=== PATIENT | female | born 1995 | race Caucasian/White ===

== ENCOUNTER 2019-07-05 07:31 | Inpatient (IN) ==
[2019-07-05] MEDS ORDERED: OXYTOCIN 30 UNITS/500 ML BAG IV PRN ×3 (07:52→18:39)
[2019-07-05 08:13] LABS: Hemoglobin 11.4 g/dL (12.0-16.0); Mean Corpuscular Hemoglobin 28.3 pg (25-34); Mean Corpuscular Volume 84.4 fL (80-100); Mean Platelet Volume 9.6 fL (7.4-10.4); Platelet Count 162 K/uL (130-400); RDW Coefficient of Variation 13.9 % (11.5-14.5); RDW Standard Deviation 43.1 fL (36.4-46.3); Red Blood Count 4.03 M/uL (4.2-5.4); White Blood Count 7.78 K/uL (4.8-10.8)
[2019-07-05 08:23] LABS: Mean Corpuscular Hgb Conc 33.5 g/dL (32-36)
[2019-07-05] MEDS: LACTATED RINGER'S 1,000 ML IV PRN ×3 (08:23→16:44)
[2019-07-05] MEDS ORDERED: fentaNYL citrate 100 MCG/2 ML VIAL ONE (11:51)
[2019-07-05] MEDS ORDERED: BUPIVACAINE 0.25% 30 ML VIAL ONE (11:51)
[2019-07-05] MEDS ORDERED: ePHEDrine sulfate 50 MG/ML AMP ONE (11:51)
[2019-07-05] MEDS ORDERED: fentaNYL 2MCG/ML ROPIV 1.25MG/ML 100 ML BAG EPI ONE (11:52)
[2019-07-05] MEDS ORDERED: NALOXONE HCL 1 MG in SODIUM CHLORIDE 0.9% 1000ML 1,000 ML IV PRN (12:03)
[2019-07-05] MEDS ORDERED: ePHEDrine sulfate 50 MG/ML AMP IV PRN (12:03)
[2019-07-05] MEDS ORDERED: fentaNYL 2MCG/ML ROPIV 1.25MG/ML 100 ML BAG EPI PRN (12:03)
[2019-07-05] MEDS ORDERED: NALOXONE HCL 0.4 MG/1 ML VIAL/CARP IV PRN (12:03)
[2019-07-05] MEDS ORDERED: DiphenhydrAMINE HCL 50 MG/ML VIAL IV PRN (12:03)
[2019-07-05] MEDS ORDERED: NALBUPHINE HCL INJ 10 MG/ML AMP IV PRN (12:03)
--- NOTE | 2019-07-05 12:03 | Anesthesiology Consultation ---
Date of Service July 05, 2019 Assessment & Plan Chart Review Chart Review: Acceptable Risk for Labor Epidural ASA ASA2 Proposed Anesthesia Anesthesia Type: Labor Epidural Risk / Benefits Reviewed With: PT / POA / Parent / Guardian, Accepts Plan and Informed Consent Obtained History Height/Weight Height: 5 ft 4 in Weight: 96.162 kg Allergies Allergy/AdvReac Type Severity Reaction Status Date / Time latex Allergy Mild Rash Verified 07/05/19 07:56 Medications Home Medications Medication Instructions Recorded Confirmed Last Taken levothyroxine 100 mcg PO DAILY 07/05/19 07/05/19 07/03/19 vit-iron fum-folic ac 1 tab PO DAILY 07/05/19 07/05/19 07/03/19 [ Vitamin] sertraline 100 mg PO DAILY 07/05/19 07/05/19 07/03/19 Active Medications Generic Name Dose Route Start Last Admin Trade Name Freq PRN Reason Stop Dose Admin Lactated Ringer's 1,000 mls @ 125 mls/hr 07/05/19 07:52 07/05/19 12:39 Lr IV 07/07/19 07:51 125 mls/hr .Q8H PRN Titration L&D Protocol Protocol Oxytocin 30 units in 500 mls @ 5 mls/hr 07/05/19 07:54 07/05/19 10:00 Pitocin IV 07/07/19 07:53 0.3 units/hr .Q24H PRN 5 mls/hr Labor Induction/Augmentation Titration Protocol 0.3 UNITS/HR Past Medical History Medical History H/O varicella History of depression Lump of skin of left upper extremity 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4 years old Exercise / Class Metabolic Activity II 4-5 Yardwork/Stairs/Walk up hill Past Family History Family History Mother Hypertension Past Surgical History Surgical History S/P wisdom tooth extraction Past Anesthesia History No Hx of Anesthesia Complications and No Family Hx of Anesthesia Complications History of PONV No Hx of PONV and No Hx of Motion Sickness Social History Smoking Status: Never smoker Hx Alcohol Use: No Hx Substance Use: No Review of Systems denies fever/cough/ colds/ chest pain/ SOB/ RAFAEL Constitutional: no fever and no chills Respiratory: no cough and no dyspnea denies RAFAEL Cardiovascular: no chest pain and no dyspnea on exertion Physical Exam Vital Signs Last Vital Signs Temp 36.3 C L 07/05/19 12:46 Pulse 76 07/05/19 13:08 Resp 18 07/05/19 12:46 BP 108/57 L 07/05/19 13:08 Pulse Ox 100 07/05/19 13:07 Testing Laboratory Results 07/05/19 08:00
[2019-07-05] MEDS ORDERED: ONDANSETRON INJ 2 MG/ML 2 ML VIAL IV PRN (13:11)
--- NOTE | 2019-07-05 18:16 | Delivery Summary ---
Vaginal Delivery Summary Date of Service July 05, 2019 Induction at 40 weeks and 5 days for postdates patient was 3 cm on admission P itocin was started estimated weight 7 to 8 pounds she requested an epidural and soon after that we performed artificial rupture of membranes for clear fluid she then progressed to fully dilated and pushed over several contractions delivering baby in occiput anterior position clear fluid no nuchal cord mouth and nares suctioned with bulb gentle traction no excessive force live vigorous infant cord clamped and cut cord gases obtained cord blood obtained placenta removed with gentle traction small first-degree tear repaired with 1 suture placenta removed with gentle traction Pitocin started estimated blood loss 150 mL sponge and instrument counts correct
--- NOTE | 2019-07-05 18:37 | Anesthesia Procedure Note ---
Date of Service July 05, 2019 Anesthesia Post Epidural Note Vital Signs Vital Signs: Temp Pulse Resp BP Pulse Ox 36.7 C 104 H 18 129/82 87 L 07/05/19 16:50 07/05/19 18:34 07/05/19 18:15 07/05/19 18:34 07/05/19 18:04 Notes Mental Status: alert / awake / arousable and participated in evaluation Patient Amnestic to Procedure: Yes Nausea / Vomiting: adequately controlled Pain: adequately controlled Airway Patency, RR, SpO2: stable & adequate BP & HR: stable & adequate Hydration State: stable & adequate Anesthetic Complications: no major complications apparent and Pt Satisfied with anesthetic care
[2019-07-05] MEDS ORDERED: BISACODYL 10 MG SUPP PR PRN (18:39)
[2019-07-05] MEDS ORDERED: DIPHTHERIA/TETANUS/PERTUSSIS 0.5 ML SYR/VIAL IM ONE (18:39)
[2019-07-05] MEDS ORDERED: OXYCODONE/ACETAMINOPHEN 5mg/325mg TAB PO PRN (18:39)
[2019-07-05] MEDS ORDERED: HYDROCORTISONE ACETATE 25 MG SUPP PR PRN (18:39)
[2019-07-05] MEDS ORDERED: BENZOCAINE 20% AER SPR 82.5 GM CAN EXT PRN (18:39)
[2019-07-05] MEDS ORDERED: SUPERCREAM 0.870% 15 GM JAR EXT PRN (18:39)
[2019-07-05 18:54] LABS: Base Excess Cord Arterial Bld -3.4 mEq/L (-9-1.8); CO2 Cord Arterial Blood 49 mmHg (39.1-73.5); HCO3 Cord Arterial Blood 24 mmol/L (19.7-28.5)
[2019-07-05 19:00] LABS: Base Excess Cord Venous Blood -2.5 mEq/L (-7.7-1.9); Cord Venous Blood HCO3 22 mmol/L (18.4-26.8); Cord Venous Blood PCO2 37 mmHg (30.4-57.2); Cord Venous Blood PO2 31 mmHg (14.1-43.3); Cord Venous Blood pH 7.39 (7.20-7.44); Oxygen Sat Cord Arterial Blood < 60.0 % (<60)
[2019-07-05] MEDS: DOCUSATE SODIUM 100 MG CAP PO SCH (20:48)
[2019-07-05] MEDS: IBUPROFEN 600 MG TAB PO PRN (23:20)
[2019-07-06] MEDS: IBUPROFEN 600 MG TAB PO PRN ×4 (03:20→19:56)
--- NOTE | 2019-07-06 06:02 | Obstetrical Progress Note ---
Date of Service July 06, 2019 Assessment & Plan (1) Status post vaginal delivery: Leopoldo is a 23 yo on PPD 1 after at 40 - GBS -, Blood Type A+, Rubella immune -Vitals reviewed and WNL (Tmax 37.1) -Hemoglobin reviewed: 11.4 down to 10.8 (patient is asymptomatic) -patient is doing clinically well Continue routine post- care. - After discharge will have [address] Taveras. Supervising Physician Co-Signing Physician Notes Resident Physician Supervision Note: I interviewed and examined the patient. Discussed with Dr. Roth and agree with findings and plan as documented in the note. Any exceptions or clarifications are listed here: [None] Documented By: Donavon Taveras MD, FACOG Subjective Pain is at a 4/10 in severity, improves with Motrin. Notes increased cramping with breast feeding Ambulation: ambulating normally Voiding: no voiding problems Passing Gas:: Yes Diet Tolerance:: regular diet Lochia:: moderate Feeding Type:: breast feeding Review of Systems Constitutional: no fever, no chills and no sweats Eyes: no worsening vision Respiratory: no cough and no dyspnea Cardiovascular: no chest pain, no palpitations, no lightheadedness, no edema and no calf pain Gastrointestinal: no nausea and no vomiting Genitourinary: no dysuria and no urinary frequency Neurologic: no headache(s) Physical Exam Constitutional: WD/WN, vitals as above no acute distress Respiratory: normal respiratory effort, lungs clear to auscultation does not use accessory muscles Auscultation: no crackles, no rales, no rhonchi, no wheezes and no pleural rub Cardiovascular: Rate/Rhythm: regular rate and regular rhythm Heart Sounds: normal S1 and normal S2; no gallop, no murmur and no cardiac rub Extremities: no calf tenderness and no pedal edema Gastrointestinal (Abdomen): Inspection/Auscultation: normal bowel sounds; abdomen not distended Percussion/Palpation: abdomen soft Genitourinary: Uterus: fundus firm, palpable 1 cm below the umbilicus Results & Data Vital Signs (Past 12 Hours) Vital Signs Temp Pulse Pulse Resp BP BP Pulse Ox 07/06/19 05:11 36.3 C L 78 18 117/75 99 11/19/19 23:58 36.4 C L 83 18 113/76 98 07/05/19 20:35 36.4 C L 87 18 115/74 98 07/05/19 20:19 104 H 120/68 07/05/19 20:15 18 07/05/19 20:04 78 118/67 07/05/19 19:49 95 H 116/61 07/05/19 19:45 37.1 C 18 07/05/19 19:34 88 109/66 07/05/19 19:20 88 115/59 L 07/05/19 19:15 20 07/05/19 19:04 83 114/68 07/05/19 19:00 37.0 C 18 07/05/19 18:49 91 H 123/74 07/05/19 18:45 18 07/05/19 18:34 104 H 129/82 07/05/19 18:30 36.8 C 104 H 18 129/82 07/05/19 18:19 105 H 18 130/73 07/05/19 18:16 96 H 18 130/65 07/05/19 18:15 18 07/05/19 18:04 97 H 87 L 07/05/19 18:02 94 H 99 Resident Activity Tracking Resident Involvement: Resident Care Provided Care Provided: OB Delivery
[2019-07-06 06:13] LABS: Hematocrit (blood only) 31.2 % (37-47); Hemoglobin 10.8 g/dL (12.0-16.0); Mean Corpuscular Hemoglobin 29.3 pg (25-34); Mean Corpuscular Hgb Conc 34.6 g/dL (32-36); Mean Corpuscular Volume 84.6 fL (80-100); Mean Platelet Volume 9.6 fL (7.4-10.4); Platelet Count 155 K/uL (130-400); RDW Coefficient of Variation 14.1 % (11.5-14.5); RDW Standard Deviation 43.8 fL (36.4-46.3); Red Blood Count 3.69 M/uL (4.2-5.4); White Blood Count 10.06 K/uL (4.8-10.8)
[2019-07-06] MEDS: LEVOTHYROXINE SODIUM 100 MCG TABLET PO SCH (06:35)
[2019-07-06] MEDS: DOCUSATE SODIUM 100 MG CAP PO SCH ×2 (08:58→20:53)
[2019-07-06] MEDS: PRENATAL VITAMIN 1 TAB PO SCH (08:58)
[2019-07-06] MEDS ORDERED: NON-FORMULARY MEDICATION (Prenatal Vit-Iron Fum-Folic Ac [Prenatal Vitamin] 1 TAB) PO SCH (09:00)
[2019-07-06] MEDS: SERTRALINE HCL 100 MG TABLET PO SCH (10:00)
[2019-07-06] MEDS: ACETAMINOPHEN 325 MG TAB PO PRN ×2 (10:32→17:04)
[2019-07-06] MEDS ORDERED: BISACODYL 5 MG TABEC PO SCH (20:00)
[2019-07-07] MEDS: ACETAMINOPHEN 325 MG TAB PO PRN (00:22)
[2019-07-07] MEDS: IBUPROFEN 600 MG TAB PO PRN ×2 (02:50→08:22)
[2019-07-07 06:06] LABS: Hematocrit (blood only) 32.5 % (37-47); Hemoglobin 10.9 g/dL (12.0-16.0)
--- NOTE | 2019-07-07 06:33 | Obstetrical Progress Note ---
Date of Service July 07, 2019 Assessment & Plan (1) Status post vaginal delivery: Leopoldo is a 23 yo on PPD 2 after at 40weeks - GBS -, Blood Type A+, Rubella immune -Vitals reviewed and WNL -patient is doing clinically well Discharge instructions reviewed - After discharge will have [address] Taveras. Supervising Physician Co-Signing Physician Notes Resident Physician Supervision Note: I was present with Dr. Roth during the history and exam. I discussed the case with the resident and agree with the findings and plan as documented in the note. Any exceptions or clarifications are listed here: doing well, ready to go home, f/u 6wks pp check. will be checking in with her pcp about her mood and zoloft with h/o ppd. she will call us with any needs. Documented By: Zaira Campos MD, FACOG Subjective Notes increased cramping with breast feeding Ambulation: ambulating normally Voiding: no voiding problems Passing Gas:: Yes Diet Tolerance:: regular diet Lochia:: mild Feeding Type:: breast feeding Review of Systems Constitutional: no fever, no chills and no sweats Eyes: no worsening vision Respiratory: no cough and no dyspnea Cardiovascular: no chest pain, no palpitations, no edema and no calf pain Gastrointestinal: no nausea and no vomiting Genitourinary: no dysuria and no urinary frequency Neurologic: no headache(s) Physical Exam Constitutional: WD/WN, vitals as above no acute distress Respiratory: normal respiratory effort, lungs clear to auscultation does not use accessory muscles Auscultation: no crackles, no rales, no rhonchi, no wheezes and no pleural rub Cardiovascular: Rate/Rhythm: regular rate and regular rhythm Heart Sounds: normal S1 and normal S2; no gallop, no murmur and no cardiac rub Extremities: no calf tenderness and no pedal edema Gastrointestinal (Abdomen): Inspection/Auscultation: normal bowel sounds; abdomen not distended Percussion/Palpation: abdomen soft Genitourinary: Uterus: fundus firm, palpable 2 cm below the umbilicus Results & Data Vital Signs (Past 12 Hours) Vital Signs Temp Pulse Resp BP 07/07/19 00:01 36.3 C L 55 L 18 130/90 07/06/19 19:30 36.5 C 73 18 117/65 Resident Activity Tracking Resident Involvement: Resident Care Provided Care Provided: OB Delivery
[2019-07-07] MEDS: LEVOTHYROXINE SODIUM 100 MCG TABLET PO SCH (07:11)
[2019-07-07] MEDS: PRENATAL VITAMIN 1 TAB PO SCH (08:22)
[2019-07-07] MEDS: DOCUSATE SODIUM 100 MG CAP PO SCH (08:22)
[2019-07-07] MEDS: SERTRALINE HCL 100 MG TABLET PO SCH (08:24)
== END 2019-07-07 11:05 | disposition home or self-care (01) | DRG 807 ==
LOC: 4S1 07:31 → 4S2 20:35